=== PATIENT | female | born 1925 | race Caucasian/White ===

== ENCOUNTER 2016-08-25 23:06 | Emergency (ER) | payer MEDICARE, OTHER ==
--- NOTE | 2016-08-29 15:16 | ER ---
ADMIT: 08/25/2016 RM/LOC: ER [facility] MR#: [id number] [place], [place] [id number] MARIA LUZ BARRAZA [address] [facility] [address] [place] [address] Emergency Room Report SEX: F AGE: 89 : 1925 DATE: 08/25/2016 ADDENDUM: This patient comes into the ER because 2 hours before coming she had an episode where she felt like her heart beat funny and it has not happened since then, but the more she thought about it, the more she would like to get it checked out. She has had a similar episode happen in the past. On physical exam, she is alert and oriented. She speaks and acts appropriately. She is having no pain or discomfort. Her CBC and BMP were normal. EKG was normal. Chest x-ray was normal. I did consult with Dr. Eden concerning treatment of the patient. She was placed on a 48-hour Holter monitor, and she is to follow up with Dr. You this week. Please see my T-sheet. NURYS Rodríguez / Bernabe Eden MD / giselle JOB #: [id number] CC: Bernabe Eden MD, Attending Physician
== END 2016-08-26 01:19 | disposition home or self-care (01) ==
LOC: ER 23:06
DX: R00.2 Palpitations (principal); I10 Essential (primary) hypertension; Z90.49 Acquired absence of other specified parts of digestive tract; Z98.890 Other specified postprocedural states; Z88.8 Allergy status to other drugs, medicaments and biological substances; Z79.899 Other long term (current) drug therapy